=== PATIENT | male | born 1980 | race African-American/Black ===

== ENCOUNTER 2021-10-04 10:11 | Outpatient (CLI) | payer OTHER, SELFPAY ==
--- NOTE | ~2021-10-04 | US_ITS ---
EXAMINATION: US scrotum doppler DATE: 10/04/2021 10:58 INDICATION: Testicular lump TECHNIQUE: Testicular sonogram utilizing grayscale and Doppler COMPARISON: None. FINDINGS: The right testis measures 4.1 x 1.9 x 2.5 cm. The left testis measures 4.1 x 2.0 x 2.6 cm. There is normal vascular flow to both testes. There is a 1.6 x 1.8 x 1.1 cm solid, predominantly isoe choic mass of the right epididymis corresponding to the area of palpable concern. A second 9 mm x 5 m m isoechoic mass is noted in the epididymis. The left epididymis is normal with normal vascular flow. There is no varicocele or hydrocele. IMPRESSION: 1. Two solid epididymal masses which may be benign or malignant. Urologic evaluation is recommended. Reviewed, dictated and finalized at location B. IMPRESSION: 1. Two solid epididymal masses which may be benign or malignant. Urologic evalu ation is recommended.
== END 2021-10-04 10:12 | disposition home or self-care (01) ==
PROVIDERS: PCP Nurse Practitioner; Visit Provider Nurse Practitioner Family
DX: N50.89 Other specified disorders of the male genital organs (principal)
CPT/HCPCS: 76870; 93976